=== PATIENT | male | born 1980 ===

== ENCOUNTER 2022-10-18 14:06 | Outpatient (CLI) | payer OTHER, SELFPAY | END 2022-10-18 14:07 | disposition home or self-care (01) | LOC: LKVREF 14:08 | PROVIDERS: PCP Family Medicine; Visit Provider Physician Assistant | DX: M10.9 Gout, unspecified (principal) | CPT/HCPCS: 84550 ==

== ENCOUNTER 2023-08-01 08:19 | Outpatient (CLI) | payer OTHER, SELFPAY | END 2023-08-01 08:20 | disposition home or self-care (01) | LOC: NFLDREF 08-21 11:44 | PROVIDERS: PCP Family Medicine; Referring Provider Family Medicine; Visit Provider Family Medicine | DX: Z00.00 Encounter for general adult medical examination without abnormal findings (principal); E78.00 Pure hypercholesterolemia, unspecified; M10.9 Gout, unspecified; R03.0 Elevated blood-pressure reading, without diagnosis of hypertension | CPT/HCPCS: 80053; 80061; 84270; 84402; 84403; 84550 ==

== ENCOUNTER 2025-01-22 09:05 | Outpatient (CLI) | payer OTHER, SELFPAY | END 2025-01-22 09:06 | disposition home or self-care (01) | PROVIDERS: PCP Family Medicine; Visit Provider Family Medicine | DX: E78.00 Pure hypercholesterolemia, unspecified (principal); M10.9 Gout, unspecified; R79.89 Other specified abnormal findings of blood chemistry; Z00.00 Encounter for general adult medical examination without abnormal findings | CPT/HCPCS: 80053; 80061; 84270; 84402; 84403; 84550 ==